=== PATIENT | female | born 1955 | race Caucasian/White ===

== ENCOUNTER 2020-08-11 06:07 | Day surgery (SDC) | payer OTHER ==
[2020-08-09 09:24] LABS: COVID AG,FIA SOURCE NASOPHARYNGEAL
[~2020-08-11 06:07] MED LIST: ALBU90AE NASAL; ALEN70TA65 PO; CELE200 PO; CYCL10 PO; FAMO20 PO; FURO10VI34 IM; HYDR-4061 PO; LAMO25TA25 PO; METO-558 PO; MOME13HF IH; MONT-35 PO; MORP60TA49 PO; OXYB5 PO; PANT-31 PO; POTA8TAB4 PO; ROSU10TA22 PO; TIOT4MIS2 NASAL; TRAZ-257 PO; ZOLP10TA8 PO
[2020-08-11] MEDS ORDERED: SODIUM CHLORIDE 0.9% 1,000 ML IV ONE (06:30)
[2020-08-11] MEDS ORDERED: POTA8TAB71 PO (07:12)
[2020-08-11] MEDS ORDERED: MOME13HF IH (07:12)
[2020-08-11] MEDS ORDERED: CHOL100018 PO (07:12)
[2020-08-11] MEDS ORDERED: OXYB5XL PO (07:12)
[2020-08-11] MEDS ORDERED: MONT-35 PO (07:12)
[2020-08-11] MEDS ORDERED: FURO40 PO (07:12)
[2020-08-11] MEDS ORDERED: FAMO20 PO (07:12)
[2020-08-11] MEDS ORDERED: AUD NEB (07:12)
[2020-08-11] MEDS ORDERED: TOPI25 PO (07:12)
[2020-08-11] MEDS ORDERED: PRED10 PO (07:12)
[2020-08-11] MEDS ORDERED: ALEN70TA65 PO (07:12)
[2020-08-11] MEDS ORDERED: PANT-31 PO (07:12)
[2020-08-11] MEDS ORDERED: CYCL10 PO (07:12)
[2020-08-11] MEDS ORDERED: HYDR-4061 PO (07:12)
[2020-08-11] MEDS ORDERED: FLUT16H NASAL (07:12)
[2020-08-11] MEDS ORDERED: MORP15TA43 PO (07:12)
[2020-08-11] MEDS ORDERED: VENL-53 PO (07:12)
[2020-08-11] MEDS ORDERED: TIOT185 IH (07:12)
[2020-08-11] MEDS ORDERED: ROSU10TA22 PO (07:12)
[2020-08-11] MEDS ORDERED: BACL10TA PO (07:12)
[2020-08-11] MEDS ORDERED: TRAZ-257 PO (07:12)
[2020-08-11] MEDS ORDERED: CYAN-35 PO (07:13)
[2020-08-11] MEDS ORDERED: ALBU8.5H8 IH (07:13)
[2020-08-11] MEDS ORDERED: ADAL40PE5 INJ (07:13)
[2020-08-11] MEDS ORDERED: ASPI-728 PO (07:13)
[2020-08-11] MEDS ORDERED: CYAN100056 IM (07:13)
[2020-08-11] MEDS ORDERED: FentaNYL CITRATE PF 100 MCG/2 ML VIAL ONE (07:39)
[2020-08-11] MEDS ORDERED: MIDAZOLAM HCL 2 MG/2 ML VIAL ONE (07:39)
[2020-08-11] MEDS ORDERED: MethylPREDNISolone SOD SUCC 125 MG/2 ML VIAL IVP ONE (09:00)
[2020-08-11] MEDS ORDERED: MethylPREDNISolone SOD SUCC 125 MG/2 ML VIAL ONE (09:11)
[2020-08-11] MEDS ORDERED: LIDOCAINE 2% 30 ML JELLY ONE (16:43)
[2020-08-11] MEDS ORDERED: BENZOCAINE 20% 50 MCG/SPRAY 57 GM ONE (16:43)
[2020-08-11] MEDS ORDERED: LIDOCAINE 4% 50 ML SOLUTION ONE ×2 (16:43→16:52)
[2020-08-11] MEDS ORDERED: ALBUTEROL SULFATE 2.5 MG/0.5 ML NEB SOLUTION NEB ONE (16:43)
[2020-08-11] MEDS ORDERED: OXYGEN THERAPY IH SCH (20:00)
== END 2020-08-11 10:15 | disposition home or self-care (01) ==
LOC: SURGERY 06:07
PROVIDERS: ATTEND Internal Medicine Critical Care Medicine
DX: J38.4 Edema of larynx (principal); B37.0 Candidal stomatitis
CPT/HCPCS: 31623; 31624; 71045; 87070; 87101; 87206; 87220; 87426; 88184; 88185; C9803; J2250; J2930; J3010; 87015; 88108; 88312; J7613; Z7610

== ENCOUNTER 2022-08-14 06:33 | Day surgery (SDC) | payer OTHER ==
[~2022-08-14] VITALS: Ht 165.1 cm; Wt 57.2 kg
[~2022-08-14 06:33] MED LIST changes: +ADAL40PE5 INJ; +ASPI-1450 PO; +BACL10TA PO; +CHOL25TA4 PO; +CYAN-42 IM; +CYCL-448 PO; -CYCL10 PO; +FLUT16SP NASAL; -MOME13HF IH; +MOME13HF11 IH; -OXYB5 PO; +OXYB5TAB20 PO; -POTA8TAB4 PO; +PRED-729 PO; -ROSU10TA22 PO; +ROSU10TA72 PO; +SLOWK8 PO; +SODIUM CHLORIDE 0.9% 1,000 ML IV ONE; +TOPI25 PO; +VENL-53 PO
[2022-08-14] MEDS ORDERED: SODIUM CHLORIDE 0.9% 1,000 ML ONE (06:42)
[2022-08-14 07:18] LABS: COVID AG,FIA SOURCE NASAL SWAB
[2022-08-14] MEDS ORDERED: FentaNYL CITRATE PF 100 MCG/2 ML VIAL ONE (08:00)
[2022-08-14] MEDS ORDERED: MIDAZOLAM HCL 2 MG/2 ML VIAL ONE (08:00)
[2022-08-14] MEDS ORDERED: MethylPREDNISolone SOD SUCC 125 MG/2 ML VIAL IVP ONE (09:15)
[2022-08-14] MEDS ORDERED: MethylPREDNISolone SOD SUCC 125 MG/2 ML VIAL ONE (09:25)
[2022-08-14] MEDS ORDERED: LIDOCAINE 4% 50 ML SOLUTION ONE (16:08)
[2022-08-14] MEDS ORDERED: LIDOCAINE 2% 11 ML JELLY ONE (16:08)
[2022-08-14] MEDS ORDERED: BENZOCAINE 20% 50 MCG/SPRAY 57 GM ONE (16:08)
[2022-08-14] MEDS ORDERED: OXYGEN THERAPY IH SCH (20:00)
== END 2022-08-14 11:00 | disposition home or self-care (01) ==
LOC: SURGERY 06:33
PROVIDERS: ATTEND Internal Medicine Critical Care Medicine
DX: J38.4 Edema of larynx (principal); B37.0 Candidal stomatitis; Z90.49 Acquired absence of other specified parts of digestive tract; Z98.890 Other specified postprocedural states; Z90.81 Acquired absence of spleen; J44.9 Chronic obstructive pulmonary disease, unspecified; G47.00 Insomnia, unspecified; Z79.899 Other long term (current) drug therapy
CPT/HCPCS: 31623; 88112; 87101; 87220; 87070; 87186; 31624; 71045; 87015; 87426; 87206; J3010; J2250; J2930; Q9967; J7030; C9803; Z7610

== ENCOUNTER 2023-03-16 06:45 | Day surgery (SDC) | payer OTHER ==
[~2023-03-16] VITALS: Ht 166.4 cm; Wt 61.5 kg
[~2023-03-16 06:45] MED LIST changes: -LAMO25TA25 PO; +LAMO25TA36 PO; -SODIUM CHLORIDE 0.9% 1,000 ML IV ONE; +SODIUM CHLORIDE 0.9% 1,000 ML ONE; +ZOLP-162 PO; -ZOLP10TA8 PO
[2023-03-16] MEDS ORDERED: SODIUM CHLORIDE 0.9% 1,000 ML IV ONE (07:00)
[2023-03-16] MEDS ORDERED: MIDAZOLAM HCL 2 MG/2 ML VIAL ONE (08:14)
[2023-03-16] MEDS ORDERED: FentaNYL CITRATE PF 100 MCG/2 ML VIAL ONE (08:15)
[2023-03-16] MEDS ORDERED: BUDE10.7 IH (08:40)
[2023-03-16] MEDS ORDERED: MONT-40 PO (08:40)
[2023-03-16] MEDS ORDERED: IPRAHFA IH (08:40)
[2023-03-16] MEDS ORDERED: MORP30TA11 PO (08:40)
[2023-03-16] MEDS ORDERED: PRED-549 PO (08:40)
[2023-03-16] MEDS ORDERED: FAMO20TA8 PO (08:40)
[2023-03-16] MEDS ORDERED: SUMA100T21 PO (08:40)
[2023-03-16] MEDS ORDERED: DENO60DI SQ (08:40)
[2023-03-16] MEDS ORDERED: ALBU18HF12 IH (08:40)
[2023-03-16] MEDS ORDERED: TRAZ-257 PO (08:40)
[2023-03-16] MEDS ORDERED: ROSU10TA72 PO (08:40)
[2023-03-16] MEDS ORDERED: HYDR-4723 PO (08:40)
[2023-03-16] MEDS ORDERED: PANT20TA18 PO (08:40)
[2023-03-16 09:15] VITALS: PULSE 72; RESP 16; O2SAT 98
[2023-03-16] MEDS ORDERED: MethylPREDNISolone SOD SUCC 125 MG/2 ML VIAL IVP ONE (09:15)
[2023-03-16] MEDS ORDERED: MethylPREDNISolone SOD SUCC 125 MG/2 ML VIAL ONE (09:15)
[2023-03-16] MEDS ORDERED: LIDOCAINE 2% 11 ML JELLY ONE (16:38)
[2023-03-16] MEDS ORDERED: BENZOCAINE 20% 50 MCG/SPRAY 57 GM ONE (16:38)
[2023-03-16] MEDS ORDERED: ALBUTEROL SULFATE 2.5 MG/0.5 ML NEB SOLUTION NEB ONE (16:38)
[2023-03-16] MEDS ORDERED: LIDOCAINE 4% 50 ML SOLUTION ONE (16:38)
== END 2023-03-16 11:15 | disposition home or self-care (01) ==
LOC: SURGERY 06:45
PROVIDERS: ATTEND Internal Medicine Critical Care Medicine
DX: J38.4 Edema of larynx (principal); B37.0 Candidal stomatitis; J44.9 Chronic obstructive pulmonary disease, unspecified; Z98.890 Other specified postprocedural states; Z90.49 Acquired absence of other specified parts of digestive tract; Z90.81 Acquired absence of spleen; Z20.822 Contact with and (suspected) exposure to COVID-19; G47.00 Insomnia, unspecified; M19.90 Unspecified osteoarthritis, unspecified site; M06.9 Rheumatoid arthritis, unspecified; L40.59 Other psoriatic arthropathy; Z79.82 Long term (current) use of aspirin; Z79.899 Other long term (current) drug therapy
CPT/HCPCS: 31623; 87206; 87101; 87220; 87070; 31624; 94640; 71045; 87015; J3010; J2250; J2930; Q9967; J7030; 88112; J7613; Z7610